=== PATIENT | female | born 1970 | race Caucasian/White ===

== ENCOUNTER 2018-12-15 15:10 | Emergency (ER) | payer MEDICAID ==
[~2018-12-15] VITALS: Ht 157.5 cm; Wt 63.5 kg
[2018-12-15 15:12] VITALS: BP 174/62
--- NOTE | 2018-12-15 15:12 | NUR ---
PT TO ER BED 4
--- NOTE | 2018-12-15 15:15 | NUR ---
PATIENT AMBULATED TO THE BATHROOM WITHOUT ASSIST, GAIT EVEN AND STEADY. PATIENT WILL PROVIDE URINE SAMPLE.
--- NOTE | 2018-12-15 15:15 | NUR ---
DR OKEEFE AT BEDSIDE FOR PT EVALUATION
--- NOTE | 2018-12-15 15:18 | NUR ---
48 YEAR OLD FEMALE C/O 03/09 LEFT UPPER BACK PAIN X 2 DAYS, AGGREVATED BY DEEP INSPIRATION. PATIENT DENIES RECENT INJURY/TRAUMA. RESPIRATIONS EVEN AND UNLABORED, AIR FLOW EQUAL BILATERALLY. NO ACCESSORY MUSCLE USE NOTED. DENIES DYSURIA. AOX4. VSS. BED LOCKED & LOW, SIDERAILS UP X1. ERMD TO EVALUATE PATIENT. HX--DENIES RX---NONE
[2018-12-15] MEDS ORDERED: KETOROLAC 60 MG/2 ML VIAL IM ONE (15:30)
--- NOTE | 2018-12-15 15:30 | NUR ---
RAD AT BEDSIDE
--- NOTE | 2018-12-15 15:48 | NUR ---
PT PAIN 3/10 AFTER TORADOL IM ADMINISTERED
[2018-12-15 16:02] VITALS: BP 174/62
== END 2018-12-15 16:03 | disposition home or self-care (01) ==
LOC: MED 15:10
DX: S29.012A Strain of muscle and tendon of back wall of thorax, initial encounter (principal); X58.XXXA Exposure to other specified factors, initial encounter; Y93.89 Activity, other specified; Y92.89 Other specified places as the place of occurrence of the external cause; Y99.8 Other external cause status
CPT/HCPCS: 71045; 96372; 99283; J1885; Q0092